=== PATIENT | female | born 1955 | race Caucasian/White ===

== ENCOUNTER 2023-10-22 09:59 | Outpatient (REF) | payer MEDICARE, SELFPAY ==
--- NOTE | ~2023-10-22 | US_ITS ---
EXAMINATION: Noninvasive assessment of the bilateral lower extremities with ARTERIAL DUPLEX and ANKLE BRACHIAL INDICES (ABIs). CLINICAL INFORMATION: Peripheral vascular disease with bilateral lower extremity claudication TECHNIQUE: Duplex Doppler techniques with waveform analysis and measurement of velocities in the bilateral common femoral, profunda femoris, superficial femoral, popliteal and tibial arteries were performed. Additionally, ankle pulse volume recordings, ankle pressure measurements and ankle brachial indices were obtained of the lower extremity arterial system bilaterally. The study was performed only at rest. COMPARISON: None FINDINGS: DIRECT DUPLEX DOPPLER FINDINGS: RIGHT LEG: Common femoral artery: 179 cm/s, phasicity: Biphasic. Moderate calcified plaque Profunda femoris artery: 224 cm/s, phasicity: Biphasic Superficial femoral artery (proximal): 153 cm/s, phasicity: Biphasic. Moderate calcified plaque Superficial femoral artery (mid): 118 cm/s, phasicity: Biphasic. Mild calcified plaque Superficial femoral artery (distal): 133 cm/s, phasicity: Biphasic. Moderate calcified plaque Popliteal artery: 92.6 cm/s, phasicity: Biphasic Posterior tibial artery: 103 cm/s, phasicity: Biphasic Peroneal artery: 67.1 cm/s, phasicity: Biphasic Anterior tibial artery: 55.2 cm/s, phasicity: Biphasic Dorsalis pedis artery: 62.0 cm/s, phasicity:Biphasic LEFT LEG: Common femoral artery: 192 cm/s, phasicity: Biphasic mild calcified plaque Profunda femoris artery: 127 cm/s, phasicity: Biphasic Superficial femoral artery (proximal): 258 cm/s, phasicity: Biphasic. Diffuse severe calcified plaque Superficial femoral artery (mid): 148 cm/s, phasicity: Biphasic. Moderate calcified plaque Superficial femoral artery (distal): 93.1 cm/s, phasicity: Biphasic. Mild calcified plaque Popliteal artery: 117 cm/s, phasicity: Biphasic Posterior tibial artery: 102 cm/s, phasicity: Biphasic Peroneal artery: 91.9 cm/s, phasicity: Biphasic Anterior tibial artery: 47.9 cm/s, phasicity: Biphasic Dorsalis pedis artery: Approximately 25 cm/s, phasicity: Monophasic ANKLE-BRACHIAL INDEX: Right: 0.99? Left: 1.02 ANKLE PRESSURES: Right: PT 128, DP 135 Left: PT?140, DP?140 ANKLE PVR WAVEFORMS: Right: Mildly dampened Left: Mildly dampened US/US arterial duplex BI w/ MIREYA IMPRESSION: Right leg: Normal ankle brachial index with mildly dampened PVR waveform. Diffuse calcified plaque in the common femoral and superficial femoral artery with patent arterial flow on duplex ultrasound. Diffuse mild stenosis of the superficial femoral artery. Left leg: Normal ankle brachial index with mildly dampened PVR waveform. Diffuse calcified plaque in the common femoral and superficial femoral artery with patent arterial flow on duplex ultrasound. Elevated velocity with more severe calcified plaque in the proximal superficial femoral artery consistent with a moderate stenosis. MIREYA Reference: - >1.4 = calcified vessels - 0.9 - 1.4 = normal - no significant arterial disease - 0.7 - 0.89 = mild peripheral arterial disease - 0.51 - 0.69 = moderate peripheral arterial disease - ? 0.50 = severe peripheral arterial disease - < .30 = critical arterial disease
== END 2023-10-22 10:00 | disposition home or self-care (01) ==
LOC: HO.US 09:59
PROVIDERS: PCP Nurse Practitioner Primary Care; Visit Provider Nurse Practitioner Primary Care
DX: I73.9 Peripheral vascular disease, unspecified (principal); M79.604 Pain in right leg; M79.605 Pain in left leg
CPT/HCPCS: 93922; 93925